=== PATIENT | female | born 1980 | race Caucasian/White ===

== ENCOUNTER 2020-09-03 09:33 | Observation (INO) | payer OTHER, SELFPAY ==
[2020-09-03] VITALS (14 sets, daily range): BP systolic 131–194; BP diastolic 77–130; PULSE 66–106; RESP 14–20; TEMP 36.1–36.9; O2SAT 95–100; BMI 34.0
--- NOTE | ~2020-09-03 | CT_ITS ---
EXAMINATION: CTA brain carotid DATE: 09/03/2020 10:52 INDICATION: Dizziness, hypertension, vertigo, nausea and vomiting TECHNIQUE: Computed tomographic angiography (CTA) of the head was performed without and with 100 mL O mnipaque-350 intravenous contrast. CTA of the neck was performed with intravenous contrast. The dose- length product was 1785.13 mGy-cm. Maximum intensity projection and volume rendered 3D-reconstruction s were created by the technologist on a separate workstation. Automated exposure control and iterativ e reconstruction technique were employed. COMPARISON: None. FINDINGS: HEAD CTA: There is no intracranial hemorrhage, acute infarction, or abnormal mass lesion. The ventric les are normal. There is no abnormal mass effect or midline shift. The lopez-white matter differentiat ion is normal. The basal cisterns are patent. The orbits are normal. The paranasal sinuses, mastoids and calvarium are normal. There is no significant stenosis of the basilar artery or posterior cerebral arteries. There is no si gnificant stenosis of the intracranial internal carotid arteries or the anterior or middle cerebral a rteries. The anterior communicating artery artery is normal. The posterior communicating arteries are diminutive. There is no aneurysm. NECK CTA: The thyroid gland is unremarkable. The submandibular and parotid glands are symmetric. Ther e is no lymphadenopathy. There are no masses identified. The airway is unremarkable. There are no oss eous abnormalities. The superior mediastinum is unremarkable. There is 0% stenosis of the proximal right internal carotid artery relative to normal distal artery l umen diameter (NASCET criteria). There is 0% stenosis of the proximal left internal carotid artery re lative to normal distal artery lumen diameter. IMPRESSION: 1. No acute intracranial abnormality. Normal head CTA. 2. 0% stenosis of the proximal right internal carotid artery relative to normal distal artery lumen d iameter (NASCET criteria). 3. 0% stenosis of the proximal left internal carotid artery relative to normal distal artery lumen di ameter. Reviewed, dictated and finalized at location A. TRONICS SCALE TESTER IMPRESSION: 1. No acute intracranial abnormality. Normal head CTA. 2. 0% stenosis of the proximal right internal carotid artery relative to normal distal artery lumen diameter (NASCET criteria). 3. 0% stenosis of the proximal left internal carotid artery relative to normal distal artery lumen diameter.
--- NOTE | ~2020-09-03 | MR_ITS ---
EXAMINATION: MR brain/brain stem wo/w con DATE: 09/04/2020 11:44 INDICATION: Vertigo. Dizziness. TECHNIQUE: Magnetic resonance imaging (MRI) of the brain and brainstem was performed without and with 19 mL MultiHance intravenous contrast. Sequences included sagittal and axial T1-weighted FSE, axial diffusion-weighted FS EPI, axial T2*-weighted GRE, axial T2-weighted FLAIR Propeller, and axial T2-we ighted Propeller. Postcontrast sequences included axial and coronal T1-weighted FSE. Apparent diffusi on coefficient (ADC) maps were created. COMPARISON: Head CT 09/03/2020 FINDINGS: There are 2 foci of increased T2-weighted signal intensity in the cerebral white matter, wh ich is within normal limits for the patient's age. There is no intracranial hemorrhage, acute infarct ion, or abnormal intracranial mass lesion. The ventricles are normal in size. The orbits are normal. The mastoid air cells are normal. The paranasal sinuses are clear. IMPRESSION: 1. Normal brain. Reviewed, dictated and finalized at location A. K REPAIR WORKER IMPRESSION: 1. Normal brain.
--- NOTE | 2020-09-03 09:57 | ECG_ITS ---
Measurements Intervals [place] Rate: 96 P: 57 MN: 136 QRS: -39 QRSD: 85 T: 20 QT: 363 QTc: 460 Interpretive Statements SINUS RHYTHM WITH SINUS ARRHYTHMIA LEFT AXIS DEVIATION BORDERLINE T WAVE ABNORMALITY- INFERIOR LEADS BORDERLINE ECG Electronically Signed On 09-03-2020 17:44:42 INTERNET ECOMMER[employer] SPECIALIST by Cheikh Jose D.O.
[2020-09-03 10:08] LABS: Basophils Percent Auto 0.1 % (0.2-1.2); Eosinophils Percent Auto 0.1 % (0-4.4); Hematocrit 46.4 % (37.0-47.0); Hemoglobin 16.1 g/dL (12.0-15.0); Immature Granulocyte Absolute 0.04 K/mm3 (0.00-0.031); Immature Granulocyte Percent A 0.3 % (0-0.5); Lymphocytes Absolute Auto 1.21 K/mm3 (0.9-3.2); Mean Corpuscular HGB Conc 34.7 g/dl (32-36); Mean Corpuscular Hemoglobin 29.4 pg (26-34); Mean Corpuscular Volume 84.7 fl (80-100); Mean Platelet Volume 9.9 fl (7.4-10.4); Monocytes Absolute Auto 0.6 K/mm3 (0.1-0.6); Monocytes Percent Auto 3.8 % (2.6-8.5); Neutrophils Absolute Auto 13.2 K/mm3 (1.3-6.7); Neutrophils Percent Auto 87.7 % (45.5-73.1); Platelet Count Result 309 k/mm3 (150-375); Red Blood Count 5.48 M/mm3 (4.2-5.4); Red Cell Distribution Width 12.3 % (11.5-14.5); White Blood Count 15.1 K/mm3 (4.5-10.0)
[2020-09-03] MEDS: LABETALOL HCL INJ 100 MG/20 ML VIAL 20 MG IV PUSH (10:13)
[2020-09-03] MEDS: METOCLOPRAMIDE HCL INJ 10 MG/2 ML VIAL IV PUSH ×2 (10:16→17:42)
--- NOTE | 2020-09-03 10:20 | ED.GENADULT ---
HPI - General Adult General Chief complaint: Dizziness Stated complaint: n/v/vertigo Time Seen by Provider: 09/03/20 09:45 Source: patient History of Present Illness HPI narrative: Patient is 40 y/o female complaining of moderate dizziness since approximately 8:30 PM last night. She state that her dizziness is like a room spinning sensation. It's worse with movement. Lying down alleviates her symptoms somewhat. She also has nausea and vomiting. She checked her BP last night and it was 170s/120s. She denies any focal weakness or numbness. She states that she has difficulty with walking due to dizziness. Related Data Home Medications Medication Instructions Recorded Confirmed alprazolam 0.25 mg PO BID PRN 09/03/20 lisinopril 10 mg PO DAILY 09/03/20 Allergies Allergy/AdvReac Type Severity Reaction Status Date / Time latex Allergy Mild Rash Verified 09/03/20 09:57 Review of Systems Constitutional: Constitutional: Denies chills, Denies fever(s), Denies headache(s) and Denies weakness Eyes: Eyes: Denies blurry vision ENT: Denies headache(s) and Denies neck pain Cardiovascular: Cardiovascular: Denies chest pain and Denies dyspnea Respiratory: Respiratory: Denies cough and Denies dyspnea Gastrointestinal: Gastrointestinal: Denies abdominal pain, Denies diarrhea, Reports nausea and Reports vomiting Genitourinary: Genitourinary: Denies hematuria and Denies dysuria Musculoskeletal: Musculoskeletal: Denies back pain and Denies neck pain Neurologic: Reports dizziness, Denies headache(s), Reports disequilibrium and Denies weakness Exam Const: General: no acute distress and well developed Orientation/consciousness: oriented to person, oriented to place, oriented to time and patient oriented x3 HENMT: Head: normocephalic Ears: external ears normal General nose exam: Normal external nose present Eyes: General: appearance normal, both eyes and all related structures Visual Red: normal visual red by confrontation Alignment and Position: other (horizontal nystagmus) Conjunctivae: conjunctivae normal Neck: Neck: normal visual inspection and full ROM Chest: Chest palpation & inspection: normal inspection of the chest and no tenderness Resp: Effort & Inspection: normal respiratory effort Auscultation: clear to auscultation bilaterally Cardio: Rate: regular rate Rhythm: regular rhythm GI: GI Palp: No abdominal tenderness and Yes Soft to palpation Skin: General skin exam: normal color and turgor normal Neuro: General: oriented to person, oriented to place, oriented to time and patient oriented x3 Cranial nerves: Yes CN's II-XII intact bilaterally Cognition (Neuro): normal cognition Speech: normal speech Motor exam (neuro): 5/5 motor strength present throughout Sensory Exam: normal sensation Coordination: [id number] test normal and [id number] test normal Extrem: General: normal to inspection, full ROM and no pedal edema Psych: Appearance: grossly normal Mental Status: mental status grossly normal Affect: normal affect Course Reevaluation(s) Reevaluation #1: Discussed with ROSE Cabrera, who agrees to admit. Date: 09/03/20 Time: 12:33 Vital Signs Vital signs: Vital Signs Temperature 36.1 C L 09/03/20 09:38 Pulse Rate 100 09/03/20 09:38 Respiratory Rate 20 09/03/20 09:38 Blood Pressure 186/122 H 09/03/20 09:38 Pulse Oximetry 100 09/03/20 09:38 Temperature 36.1 C L 09/03/20 09:38 Pulse Rate 84 09/03/20 17:32 Respiratory Rate 18 09/03/20 17:32 Blood Pressure 131/82 09/03/20 17:32 Pulse Oximetry 100 09/03/20 17:32 Medical Decision Making Vital Signs Vital Signs: Vital Signs Temperature 36.1 C L 09/03/20 09:38 Pulse Rate 100 09/03/20 09:38 Respiratory Rate 20 09/03/20 09:38 Blood Pressure 186/122 H 09/03/20 09:38 Pulse Oximetry 100 09/03/20 09:38 Temperature 36.1 C L 09/03/20 09:38 Pulse Rate 84 09/03/20 17:32 Respiratory Rate 18
[2020-09-03 10:23] LABS: Alanine Aminotransferase 17 U/L (4-35); Albumin Level 4.5 g/dL (3.5-5.1); Alkaline Phosphatase 81 U/L (38-126); Anion Gap 11 mmol/L (8-16); Aspartate Amino Transferase 29 U/L (14-36); Bilirubin,Total 0.8 mg/dL (0.2-1.3); Blood Urea Nitrogen 13 mg/dL (7-17); Calcium 9.5 mg/dL (8.4-10.2); Carbon Dioxide 25 mmol/L (22-30); Chloride 103 mmol/L (98-107); Estimated CRCL calculation 127 ml/min; Estimated Glomerular Filt Rate > 60; Glucose 130 mg/dL (65-105); Sodium 139 mmol/L (137-145)
[2020-09-03 10:32] LABS: NT Pro B Type Natriuretic Pept 353 PG/ML (5-100)
[2020-09-03 10:40] LABS: Add Urine Microscopic? YES; Appearance Urine Cloudy (Clear); Bacteria Urine Trace /hpf; Bilirubin Urine Negative (Negative); Color Urine Yellow (Yellow); Glucose Urine UA Negative (Negative); Ketones Urine 1+ mg/dL (Negative); Leukocyte Esterase Ur Negative LEU/UL (Negative); Mucus Urine Moderate /lpf; Nitrate Urine Negative (Negative); Protein Urine 1+ mg/dL (Negative); Specific Grav Ur 1.023 (1.001-1.035); Squamous Epithelial Cell Urine Many /hpf (Few); Urobilinogen Urine Negative mg/dL (<2.0)
[2020-09-03 10:44] LABS: Blood Urine Negative (Negative)
[2020-09-03] MEDS: amLODIPine BESYLATE 5 MG TABLET 10 MG PO (11:18)
[2020-09-03] MEDS: hydroCHLOROthiazide 25 MG TABLET PO (11:19)
[2020-09-03] MEDS: lisinopriL 20 MG TABLET PO (12:29)
--- NOTE | 2020-09-03 14:21 | PC.NURSE ---
dietary tray ordered for pt
[2020-09-03] MEDS: MECLIZINE HCL 25 MG TABLET PO (17:42)
--- NOTE | 2020-09-03 19:00 | PM.IMHP ---
H&P: HPI History of Present Illness Date/Time: 09/03/20 19:00 Chief complaint: Nausea, vomiting, dizziness. Narrative: Rosita Gomes is a 40-year-old female recently diagnosed with hypertension who presented to the emergency department earlier this morning with complaints of dizziness, nausea, and vomiting. Several weeks ago she developed vertigo and was seen at a local urgent care where she was diagnosed with what sounds like probable BPPV. She was discharged with meclizine which seemed to really help and was also given a prescription for lisinopril 10 mg daily as her blood pressure was high. She goes on to say that for the last 3 months or so she has been monitoring her blood pressures at work and is not unusual for them to be upwards of 180s over 120s, and since starting lisinopril they have been averaging 145/95. In any regard, she again developed sudden onset vertigo last evening while on the computer and that has persisted throughout the day. She describes vertigo which at times is worse with changing positions and moving her head in certain directions. Nausea and vomiting preceded not long after the development of the vertigo and has persisted. She tried to take meclizine and lisinopril last night but was unable to hold them down. At the time my evaluation she complains of a diffuse headache which she attributes to dehydration for not being able to hold down food or liquid since last evening. She denies fever, chills, sweats, sinus congestion, rhinorrhea, otalgia, odynophagia, auditory and visual changes, focal weakness, and paresthesias. No palpitations or history of cardiac dysrhythmia. Review of Systems Review of Systems: Narrative: Twelve systems were reviewed with pertinent positives and negatives as per HPI. She denies recent cold and flu symptoms. No sick contacts or exposure to those positive for COVID-19. She denies palpitations and history of cardiac dysrhythmia. No exertional chest pain or shortness of breath. No orthopnea, PND, or lower extremity edema. Except as documented, all other systems were reviewed and are negative. [facility] Past Medical History Medical History (Updated 09/03/20 @ 21:19 by Deborah Epps PA-C) Anxiety Hypertension Kidney stones Surgical History Surgical History (Updated 09/03/20 @ 21:16 by Deborah Epps PA-C) No history of previous surgery Family History Family History (Updated 09/03/20 @ 21:17 by Deborah Epps PA-C) Mother Lung cancer Social History Social History (Updated 09/03/20 @ 21:17 by Deborah Epps PA-C) Social History: Surrogate decision maker: Michelle Pena, sister Code status: Full code. Smoking status: Never smoker Alcohol intake: current Drinks per week: 3 Substance use: never Additional living arrangements comments: Who resides in [place] with her sister and [id number]. She has no children. 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 Spiritual care concerns: No Meds Home Medications and Allergies Home Medications Medication Instructions Recorded Confirmed Type alprazolam 0.25 mg PO BID PRN 09/03/20 09/03/20 History lisinopril 10 mg PO DAILY 09/03/20 09/03/20 History Allergies Allergy/AdvReac Type Severity Reaction Status Date / Time latex Allergy Mild Rash Verified 09/03/20 19:36 Vital Signs Vital Signs - 24 hr 09/03/20 09:38 09/03/20 09:56 09/03/20 11:19 Temperature 96.9 F L Pulse Rate 100 87 76 Respiratory Rate 20 16 14 Blood Pressure 186/122 H 194/130 H 168/101 H Pulse Oximetry 100 100 100 09/03/20 12:13 09/03/20 12:33 09/03/20 12:53 Temperature Pulse Rate 66 105 H 81 Respiratory Rate 14 17 18 Blood Pressure 168/105 H 156/99 H 160/92 H Pulse Oximetry 99 95 99 09/03/20 14:00 09/03/20 14:16 09/03/20 15:07 Temperature Pulse Rate 84 105 H 88 Respiratory Rate 14 15 15
--- NOTE | 2020-09-03 19:00 | ADMGEN ---
This patient, Rosita Gomes, was admitted to 2 Medical Room 249-01. Patient/family oriented to hospital policies and general routines including ID bracelet, bed and alarms, visiting hours, pain management, procedures, bathroom and other care routines, personal items, smoking policy, room service/diet, and visiting hours. Information on how to activate the Rapid Response Team has been discussed. Patient/Family are encouraged to report perceived risks to care and to ask questions if they do not understand what they are told or what they should do. Report received from DANAY Harper.
--- NOTE | 2020-09-03 19:38 | PC.NURSE ---
I notified ROSE Rocha that the patient arrived to the unit with nausea and vomiting. The patient does not have any medications ordered at this time. She said she would assess the patient and put orders in.
[2020-09-03] MEDS: ONDANSETRON INJ 4 MG/2 ML VIAL IV PUSH (19:57)
[2020-09-03] MEDS: diazePAM INJ (*CRX) 10 MG/2 ML SYRINGE 5 MG IV PUSH (19:57)
[2020-09-03] MEDS: SODIUM CHLORIDE 0.9% IV 1,000 ML 999 ML IV CONT (20:14)
[2020-09-04] VITALS (14 sets, daily range): BP systolic 142–159; BP diastolic 79–98; PULSE 68–114; RESP 16–18; TEMP 36.3–36.7; O2SAT 97–99
--- NOTE | 2020-09-04 | ECHO_ITS ---
Patient Info Name: Rosita Gomes Age: 40 years : 1980 Gender: Female Ht: 67 in Wt: 213 lbs BSA: 2.17 m2 HR: 77 bpm BP: 159 / 87 mmHg Heart Rhythm: Sinus Rhythm Technical Quality: Good Exam Date: 09/04/2020 3:18 PM Exam Location: [facility] Patient Status: Inpatient Admit Date: 09/03/2020 Staff Ordering Physician: Maia Patterson NP Soil And Plant Scientist: Jose Miguel Hayes RDCS Attending Provider: Maia Patterson NP Referring Physician: Leonardo EUCEDA; Exam Type: CA echo doppler color flow Study Info Indications 386.2 - Vertigo of Central Origin Complete two-dimensional, color flow and Doppler transthoracic echocardiogram is performed. Strain analysis performed. History/Risk Factors Vertigo; dizziness, uncontrolled HTN. Summary 1. Complete two-dimensional, color flow and Doppler transthoracic echocardiogram is performed. 2. Left ventricular chamber size, systolic and diastolic function are normal with no regional wall motion abnormalities with an estimated ejection fraction of 60-65%. The global longitudinal strain however is mildly diminished at -14%, suggesting possible early systolic dysfunction. Mild left ventricular hypertrophy present. 3. No significant valve disease. 4. Normal sinus rhythm. Left Ventricle Left ventricular chamber dimension is normal. Left ventricular systolic function is normal, estimated at 60-65%. There is mildly increased left ventricular wall thickness. Left ventricular septal wall motion is normal. The left ventricular diastolic function is normal. Left ventricular chamber size, systolic and diastolic function are normal with no regional wall motion abnormalities with an estimated ejection fraction of 60-65%. The global longitudinal strain however is mildly diminished at -14%, suggesting possible early systolic dysfunction. Mild left ventricular hypertrophy present. Right Ventricle Right ventricular chamber dimension is normal. Right ventricular systolic function is normal. Left Atria Left atrial chamber dimension is normal. Right Atria Right atrial chamber dimension is normal. Aortic Valve The aortic valve is trileaflet. There is no aortic valve sclerosis. There is no aortic valve stenosis. There is no aortic valve regurgitation. Pulmonic Valve The pulmonic valve is normal. There is no pulmonic valve stenosis. There is trace pulmonic regurgitation. Mitral Valve The mitral valve has normal leaflets. There is no mitral valve stenosis. There is no mitral valve regurgitation. Tricuspid Valve The tricuspid valve leaflets are normal. There is no significant tricuspid valve stenosis. There is trace tricuspid valve regurgitation. No pulmonary hypertension, estimated pulmonary arterial systolic pressure is Empty. Pericardium/Pleural The pericardium appears normal. There is no pericardial effusion. Inferior Vena Cava Normal inferior vena cava with >50% collapse upon inspiration consistent with Empty right atrial pressure, 5 mmHg. Aorta The aortic root size at the sinus of Valsalva is normal. The prox ascending aorta size is normal. Left Ventricular Outflow Tract Name Value Normal LVOT 2D LVOT Diameter
[2020-09-04 06:07] LABS: Hematocrit 41.7 % (37.0-47.0); Hemoglobin 14.2 g/dL (12.0-15.0); Mean Corpuscular HGB Conc 34.1 g/dl (32-36); Mean Corpuscular Hemoglobin 28.6 pg (26-34); Mean Corpuscular Volume 83.9 fl (80-100); Mean Platelet Volume 10.2 fl (7.4-10.4); Platelet Count Result 300 k/mm3 (150-375); Red Blood Count 4.97 M/mm3 (4.2-5.4); Red Cell Distribution Width 12.4 % (11.5-14.5); White Blood Count 11.9 K/mm3 (4.5-10.0)
[2020-09-04 06:21] LABS: Anion Gap 9 mmol/L (8-16); Blood Urea Nitrogen 10 mg/dL (7-17); CRP 0.5 mg/dL (<1.0); Calcium 8.8 mg/dL (8.4-10.2); Carbon Dioxide 27 mmol/L (22-30); Chloride 101 mmol/L (98-107); Estimated CRCL calculation 110 ml/min; Estimated Glomerular Filt Rate > 60; Glucose 96 mg/dL (65-105); Potassium 3.2 mmol/L (3.4-5.0); Sodium 137 mmol/L (137-145)
[2020-09-04] MEDS: MECLIZINE HCL 12.5 MG TABLET PO ×2 (08:41→18:40)
[2020-09-04] MEDS: hydroCHLOROthiazide 12.5 MG CAPSULE PO (08:41)
[2020-09-04] MEDS: lisinopriL 20 MG TABLET PO (08:41)
--- NOTE | 2020-09-04 14:24 | PM.IMPN ---
Progress Note: A&P Assessment and Plan (1) Vertigo: Code(s): R42 - Dizziness and giddiness Status: Acute Assessment and Plan: vertigo caused by uncontrolled HTN? or is uncontrolled Vertigo causing HTN? benign paroxysmal positional vertigo? Meclizine available as well. getting a brain MRI to rule out posterior CVA - results pending (2) Uncontrolled hypertension: Code(s): I10 - Essential (primary) hypertension Status: Acute Assessment and Plan: continue home med: lisinopril continue HCTZ started Norvasc today monitor VS every 4 hours cotininue close monitoring tried a dose of Valium checking ECHO, CT scan head/neck without stenosis or obvious concers or cause for HTN checking Orthostatic BP continue to monitor blood pressures closely (3) Dehydration: Code(s): E86.0 - Dehydration Status: Acute Assessment and Plan: got 1 L of normal saline continued to encourage oral hydration started protonix Antiemetics not losing fluids through stools or vomiting at this time. patient working to improve, keeping fluids down today, states that she is urinating frequently Subjective Date/time seen: 09/04/20 14:24 Patient has been having significant episodes of vertigo, recently diagnosed as BPPV. She uses meclizine at home on occasion p.r.n.. She was admitted recently with significant headaches, dizziness, nausea, vomiting, dehydration, and uncontrolled hypertension. She was on only lisinopril at home. But has since required adding hydrochlorothiazide and Norvasc to get her blood pressure better controlled. Her UA was clear. While her BP was better today, I have added Norvasc now as a scheduled med. Even today, she is not feeling safe enough to drive herself and is not back to her baseline functionality. She is having to rest with eyes closed for some time after her MRI testing, to get her BP and headache to improve. With all these symptoms, she has not yet had a Neurologist rule out for concerns. Her Brain MRI is pending at this time. Ordered ECHO, checking TSH/Mag/Vit D/Phos levels at this time. Repeating BNP tomorrow morning. Will see if she is able to keep fluids and foods down for next 24 hours. Started protonix PO. Will also monitor her BP for improvement with these new medications added. Ortho static VS check and ordered PT for BPPV training/education evaluation and treatment. Review of Systems Review of Systems: All systems reviewed & are unremarkable except as noted in HPI and below Constitutional: Constitutional: Reports as per HPI, Denies body ache(s), Denies chills, Denies fever(s), Denies frequent falls, Denies headache(s), Denies snoring, Denies weakness, Denies weight gain and Denies weight loss Eyes: Eyes: Reports as per HPI, Reports blurry vision (blurred vision only with vertigo episodes), Denies exophthalmos, Denies change in vision, Denies diplopia, Denies eye discharge, Denies loss of peripheral vision and Denies loss of vision ENT: Reports as per HPI, Reports Normal hearing present, Reports dizziness, Reports dry mouth, Denies headache(s), Denies neck pain and Reports disequilibrium Cardiovascular: Cardiovascular: Reports as per HPI, Denies chest pain, Denies rapid heart rate, Denies pedal edema, Denies edema, Denies claudication, Reports lightheadedness and Denies dyspnea Respiratory: Respiratory: Reports as per HPI, Reports no additional respiratory complaints, Denies cough and Denies dyspnea Gastrointestinal: Gastrointestinal: Reports as per HPI, Denies abdominal pain, Denies change in bowel habits, Denies constipation, Denies diarrhea, Reports nausea and Reports vomiting Genitourinary: Genitourinary: Reports as per HPI, Denies hematuria and Denies dysuria Musculoskeletal: Musculoskeletal: Reports as per HPI, Denies back pain, Denies muscle weakness and Denies neck pain Integumentary/Breasts: Skin/Breast: Reports as per HPI and Denies dry skin Neurologi
[2020-09-04] MEDS: POTASSIUM CHLORIDE 20 MEQ TABLET.ER 40 MEQ PO ×2 (15:56→18:39)
[2020-09-04 16:20] LABS: Vitamin D 25 Hydroxy 33.2 ng/mL
[2020-09-04 17:38] LABS: Free T4 Free Thyroxine Reflex 1.45 ng/dL (0.78-2.19)
[2020-09-04 18:31] LABS: Total Triiodothyronine (T3) 1.51 NG/ML (0.97-1.69)
[2020-09-04] MEDS: PANTOPRAZOLE 40 MG TABLET PO (20:16)
[2020-09-05] VITALS: PULSE 83
[2020-09-05 04:00] VITALS: PULSE 65
[2020-09-05 05:32] LABS: Hematocrit 42.7 % (37.0-47.0); Hemoglobin 14.7 g/dL (12.0-15.0); Mean Corpuscular HGB Conc 34.4 g/dl (32-36); Mean Corpuscular Hemoglobin 29.1 pg (26-34); Mean Corpuscular Volume 84.6 fl (80-100); Mean Platelet Volume 9.9 fl (7.4-10.4); Platelet Count Result 274 k/mm3 (150-375); Red Blood Count 5.05 M/mm3 (4.2-5.4); Red Cell Distribution Width 12.5 % (11.5-14.5); White Blood Count 8.2 K/mm3 (4.5-10.0)
[2020-09-05 05:51] LABS: Alanine Aminotransferase 14 U/L (4-35); Albumin Level 3.9 g/dL (3.5-5.1); Alkaline Phosphatase 63 U/L (38-126); Anion Gap 4 mmol/L (8-16); Aspartate Amino Transferase 21 U/L (14-36); Bilirubin,Total 0.7 mg/dL (0.2-1.3); Blood Urea Nitrogen 12 mg/dL (7-17); Calcium 9.1 mg/dL (8.4-10.2); Carbon Dioxide 31 mmol/L (22-30); Chloride 103 mmol/L (98-107); Estimated CRCL calculation 97 ml/min; Estimated Glomerular Filt Rate > 60; Glucose 99 mg/dL (65-105); Potassium 3.9 mmol/L (3.4-5.0); Sodium 138 mmol/L (137-145)
[2020-09-05 05:53] VITALS: BP 140/83; PULSE 91; RESP 18; TEMP 37.1; O2SAT 99
[2020-09-05 05:55] LABS: NT Pro B Type Natriuretic Pept 96 PG/ML (5-100)
[2020-09-05 08:00] VITALS: PULSE 88
[2020-09-05 08:01] VITALS: BP 143/88; PULSE 88; RESP 16; O2SAT 99
[2020-09-05] MEDS: MECLIZINE HCL 12.5 MG TABLET PO (08:03)
[2020-09-05] MEDS: amLODIPine BESYLATE 5 MG TABLET PO (08:03)
[2020-09-05] MEDS: lisinopriL 20 MG TABLET PO (08:03)
[2020-09-05] MEDS: PANTOPRAZOLE 40 MG TABLET PO (08:03)
[2020-09-05] MEDS: hydroCHLOROthiazide 12.5 MG CAPSULE PO (08:03)
--- NOTE | 2020-09-05 09:30 | PM.DS ---
DS: Admitting Diagnosis Admitting Diagnosis Admitting Diagnosis: Nausea, vomiting, dizziness. DS: Discharge Diagnosis Discharge Diagnosis (1) Vertigo: Code(s): R42 - Dizziness and giddiness Status: Acute Assessment and Plan: Vertigo possibly due to uncontrolled HTN vs BPPV? Improved, but still present today. Okay for discharge. Brain MRI unremarkable. D/c on meclizine prn F/u with PCP Discussed Vestibular PT as outpatient Discussed no driving until f/u with PCP (2) Uncontrolled hypertension: Code(s): I10 - Essential (primary) hypertension Status: Acute Assessment and Plan: BP improved but still slightly elevated; BP 143/88 most recent. Echo pending; will follow Will discharge on Lisinopril 20 mg daily, HCTZ 12.5 mg daily, and amlodipine 5 mg daily F/u with PCP (3) Dehydration: Code(s): E86.0 - Dehydration Status: Acute Assessment and Plan: got 1 L of normal saline. Appears to be euvolemic today. Decreased PO intake given n/v from vertigo; improved. Encourage PO intake Will discharge on short course of antiemetics DS: Summary Hospital Course Reason for hospitalization: Vertigo, cva r/o Hospital Course: Patient is a 40 yo F with history of recently diagnosed with hypertension who presented to the emergency department on 09/03 with complaints of dizziness, nausea, and vomiting. While in the ED, she was found to have BP of 186/122 and given labetalol with improvement in her BP. CTA of head and neck showed no acute intracranial abnormality/normal head CTA and 0% stenosis of b/l carotids. N/v and vertigo symptoms were persistent despite antiemetics and meclizine. Patient admitted under this setting. Please see H&P for further details. Patient was admitted to the hospitalist service for further evaluation. Brain MRI was found to be negative as well. Echo was found to be grossly unremarkable for etiology of symptoms. She was placed on hydrochlorothiazide diuretic, her lisinopril was increased, and amlodipine was added to her regimen with overall improvement of her blood pressure during her course. Her n/v resolved during her stay, however, she was still somewhat having vertigo symptoms. Plan was for her to be discharged with follow up with PCP and vestibular PT as an outpatient. She was given amlodpine 5 mg prescription, HCTZ prescription, meclizine and Zofran prescription as needed at discharge. Lisinopril was increased to 20 mg daily. It was recommended not to drive until follow up with PCP. Patient agreeable and comfortable with plan for discharge. Patient hemodynamically stable and in improved condition for discharge on Status at Discharge Overall status at discharge: patient is progressing back to baseline Time Spent with Patient Time attestation: Total time spent providing and/or coordinating discharge services: Time spent: Greater than 30 minutes Exam Narrative: Exam Narrative: General: Patient resting supine in bed in no acute distress. HEENT: Normocephalic, EOMI, oral mucosa moist. No nystagmus Cardiovascular: Rate and rhythm are regular. No notable murmur, rub, or gallop. Respiratory: Lungs clear to auscultation all red. Non-labored breathing. Abdomen: Soft, non-tender, non-distended, bowel sounds present. Hypoactive BS Extremities: Peripheral pulses intact. No edema. Neuro: No focal neurological deficits. Speech is clear. DS: Data Data Completed and Pending Labs on day of discharge: Last Vital Signs Temp 98.7 F 09/05/20 05:53 Pulse 88 09/05/20 08:01 Resp 16 09/05/20 08:01 BP 143/88 H 09/05/20 08:01 Pulse Ox 99 09/05/20 08:01 Laboratory Tests 09/05/20 05:05 09/05/20 05:05 ITS Impressions Head/Neck CTA 09/03/20 11:01 IMPRESSION: 1. No acute intracranial abnormality. Normal head CTA. 2. 0% stenos
[2020-09-05 12:00] VITALS: PULSE 85
--- NOTE | 2020-09-05 14:21 | PCPTNOTE ---
Patient educated on how to use a straight cane during ambulation and transfers in order to facilitate improved balance with functional mobility and overall safety and independence. PT educated patient on potential options to purchase a straight cane. Patient demonstrated and verbalized understanding. Nichole Mullins, PT, DPT
--- NOTE | 2020-09-08 09:42 | PC.NURSE ---
Attempted to call patient with ECHO results. No answer.
--- NOTE | 2020-09-11 12:58 | PC.NURSE ---
No answer to phone call.
== END 2020-09-05 14:25 | disposition home or self-care (01) ==
LOC: ANHED 12:27 → ANH2MED 17:52
PROVIDERS: Nurse Practitioner; Physician Assistant; Admitting Provider Student in an Organized Health Care Education/Training Program; Emergency Provider Emergency Medicine; Visit Provider Physician Assistant
DX: R42 Dizziness and giddiness (principal); I16.0 Hypertensive urgency; I10 Essential (primary) hypertension; E86.0 Dehydration; R11.2 Nausea with vomiting, unspecified; F41.9 Anxiety disorder, unspecified; Z23 Encounter for immunization
CPT/HCPCS: 36415; 70496; 70498; 70553; 80048; 80053; 81001; 81025; 82306; 83735; 83880; 84100; 84439; 84443; 84480; 85025; 85027; 86140; 87086; 87088; 90471; 90653; 93005; 93306; 96361; 96374; 96375; 96376; 97116; 97161; 97530; 99285; A9270; A9577; G0008; G0378; J2405; J2765; J3360; J7030; Q9967

== ENCOUNTER 2020-10-12 08:00 | Outpatient (RCR) | payer OTHER, SELFPAY ==
--- NOTE | 2020-09-19 09:11 | PTOPEVAL ---
PHYSICAL THERAPY EVALUATION AND PLAN OF CARE 09-19-2020 Thank you for referring Rosita Gomes to [facility].? She is scheduled to be seen for therapy? 1-2 x/week for 4 weeks. Please review, sign, date and return this plan of care BRENNA. I agree with and certify that the following plan of care is medically necessary. Referring Physician Date Attending Provider: Eladio Perez PA-C PT Outpatient Evaluation Document 09/19/20 08:05 GONZALEZ (Rec: 09/19/20 09:11 GONZALEZ [id number]) Outpatient Past Medical History Past Medical History Source of Past Medical History Patient Neurological History Hx Migraine Yes: in past, not any for ~ 5 yr, except one in past month Cardiovascular History Hx Hypertension Yes: meds control, 110/80 is normal, check daily Respiratory History Hx Respiratory Disorders No Significant History Gastrointestinal History Hx Gastrointestinal Disorders No Significant History Genitourinary History Hx Kidney Stones Yes Musculoskeletal History Hx Fractures Yes: Rt foot fx Hematological History Hx Hematological Disorders No Significant History Endocrine History Hx Endocrine Disorders No Significant History HEENT History Hx Other HEENT Disorders Yes: glasses Integumentary History Hx Skin Disorders No Significant History Reproductive History Hx Reproductive Disorders No Significant History Psychosocial History Hx Anxiety Yes Hx Depression Yes Pain History History of Any Previous or Ongoing No Significant History Instance of Pain Anesthesia History Hx Anesthesia Reactions No Significant History Other History Hx Other Surgeries Yes: wisdom teeth removed, kidney stone x 2 Evaluation Information Problem Diagnosis dizziness Onset Aug 22, 2020 Prior Level of Function Activity Level (Last 3 Months) Occupation [employer] Community Mobility Needs Some Help Comments Additional Prior Level of Function last day of work Sep 02; not Comments driven since Sep 02; doing light chores, can only do them for about 15- 20 minutes then have to stop and rest; have others in the home help do things; able to walk yesterday, around block and dizzy; using cane in community due to off balance when walking; do not use in the house; Pain Assessment Timing of Pain Assessmen
--- NOTE | 2020-11-01 11:53 | PCPTNOTE ---
PHYSICAL THERAPY DISCHARGE 11-01-20 Attending Provider: Eladio Perez PA-C Patient:Rosita Gomes Date of :1980 Ms. Gomes has received 4 PT treatment sessions, from September 19 to 2019 for the diagnosis of vertigo/vestibular therapy. At the last session, she did not have any vestibular s/s. The goals have been achieved. PT is discharged. Thank you for referring Rosita to [facility]. Please review, sign, date and return this discharge summary BRENNA. I have been updated about the patient's current status and I agree with discharge from the above service at this time. Referring Physician Date
== END 2020-11-02 11:19 | disposition home or self-care (01) ==
LOC: ANHPT 08:00
PROVIDERS: PCP Physician Assistant; Visit Provider Physician Assistant
DX: R42 Dizziness and giddiness (principal)
CPT/HCPCS: 97110; 97161

== ENCOUNTER 2021-06-06 08:36 | Outpatient (CLI) | payer OTHER, SELFPAY ==
--- NOTE | ~2021-06-06 | MM_ITS ---
EXAMINATION: MM screening nas BI w whit HISTORY: Screening mammogram TECHNIQUE: Craniocaudal and mediolateral oblique 3-D tomosynthesis images were obtained and synthetic 2-D images were generated. CAD analysis was submitted and interpreted. COMPARISON: None, baseline BREAST PARENCHYMAL COMPOSITION: The breasts are heterogeneously dense, which may obscure small masses . FINDINGS: There is no evidence of suspicious mass, calcification, or architectural distortion to sugg est malignancy in either breast. IMPRESSION: 1. No mammographic evidence of malignancy. 2. Recommend routine screening mammography in one year. BI-RADS Category 1: Negative Reviewed, dictated and finalized at location A.
== END 2021-06-06 08:37 | disposition home or self-care (01) ==
LOC: ANHIMG 08:38
PROVIDERS: PCP Physician Assistant; Visit Provider Obstetrics & Gynecology
DX: Z12.31 Encounter for screening mammogram for malignant neoplasm of breast (principal)
CPT/HCPCS: 77063; 77067